=== PATIENT | female | born 1950 | race Caucasian/White ===

== ENCOUNTER 2019-10-08 06:49 | Day surgery (SDC) | payer MEDICARE, BC ==
[~2019-10-08 06:49] MED LIST: Dextrose 5%-0.45% NaCl 1,000 ML IV SCH; Midazolam 1 MG/ML 2 ML SDV ONE; Sodium Chloride 0.9% 10 ML Syringe FLUSH PRN; fentaNYL 100 MCG/2 ML SDV ONE
[2019-10-08] MEDS ORDERED: Midazolam 1 MG/ML 2 ML SDV IV ONE ×7 (06:50→07:45)
[2019-10-08] MEDS ORDERED: fentaNYL 100 MCG/2 ML SDV IV ONE ×3 (06:50→07:30)
[2019-10-08] MEDS ORDERED: Sodium Chloride 0.9% 1,000 ML IV SCH (07:40)
--- NOTE | 2019-10-08 14:38 | OR ---
DATE: 10/08/2019 PROCEDURE PERFORMED: Total colonoscopy. INSTRUMENT USED: PCF-H190DL Olympus video colonoscope. PREMEDICATIONS: Fentanyl 100 mcg intravenous, Versed 4 mg intravenous. Nasal O2 cannula. The procedure was done under pulse oximetry, BP recording, and cardiac monitoring. INDICATION: The patient with recent onset of left lower quadrant abdominal pain. Colonoscopic examination is done for detection of any polypoid lesions and removal, endoscopic hemostasis therapy if needed. DESCRIPTION OF PROCEDURE: Initial rectal exam was unremarkable. Rigid anoscopy was normal. The colonoscope was passed with ease. Scattered diverticula were noted, more so in the distal left colon along with some deformity. The scope was passed with ease into the ileocecal area. Photographs were taken of the normal-appearing cecum, identified by landmarks of appendiceal orifice and double-bulged ileocecal folds. No bleeding was noted from any of the visualized areas at the commencement of the examination. The bowel preparation was found to be adequate. [place] scale 2 in all the regions, total score of 6. No stricture. No vascular ectasia. No large isolated ulceration seen. No evidence of diffuse inflammatory bowel disease in the form of friability, contact bleeding, or ulcerations. No polyp and no tumor mass identified. Probing the proximal sides of folds and flexures using adequate distention and clearing up the stool material, withdrawal of the scope was made. Cecum to rectum time of over 6 minutes. No bleeding was noted from any of the visualized areas at the completion of examination. IMPRESSION: Diverticulosis. The patient tolerated the procedure well. [facility] /[id number]
== END 2019-10-08 09:48 | disposition home or self-care (01) ==
LOC: DL.ENDO 06:49
PROVIDERS: ATTEND Internal Medicine Gastroenterology
DX: K57.30 Diverticulosis of large intestine without perforation or abscess without bleeding (principal)
CPT/HCPCS: 45378; J2250; J3010; J7030; J7042; G0121

== ENCOUNTER 2019-10-24 06:56 | Day surgery (SDC) | payer MEDICARE, BC ==
[~2019-10-24 06:56] MED LIST changes: -Dextrose 5%-0.45% NaCl 1,000 ML IV SCH; -Sodium Chloride 0.9% 10 ML Syringe FLUSH PRN
[2019-10-24] MEDS ORDERED: fentaNYL 100 MCG/2 ML SDV IV ONE ×3 (06:57→08:17)
[2019-10-24] MEDS ORDERED: Midazolam 1 MG/ML 2 ML SDV IV ONE ×3 (06:57→08:18)
[2019-10-24] MEDS ORDERED: Sodium Chloride 0.9% 10 ML Syringe FLUSH PRN (07:46)
[2019-10-24] MEDS ORDERED: Dextrose 5%-0.45% NaCl 1,000 ML IV SCH (08:00)
--- NOTE | 2019-10-24 13:18 | OR ---
DATE: 10/24/2019 PROCEDURE: Esophagogastroduodenoscopy and multiple pinch biopsies. INSTRUMENT USED: [id number]-HQ190 Olympus video panendoscope. PREMEDICATIONS: No oral or topical anesthesia used. Fentanyl 100 mcg intravenous, Versed 1.5 mg intravenous, nasal O2 cannula. The procedure was done under pulse oximetry, BP recording, and chha. INDICATION: The patient with high dysphagia and dyspepsia, unexplained and not responsive to medical measures. Recent barium esophagogram suspicious for distal esophageal ulcer versus diverticulum. Esophagogastroduodenoscopy is performed for detection of any active erosive lesions, [place] esophagus and/or malignancy also under consideration, H pylori status to be determined, esophageal dilatations if indicated, endoscopic hemostasis therapy if needed. PROCEDURE IN DETAIL: The scope was passed with ease. Adequate visualization of the esophagus was made from proximal to distal areas. No upper esophageal lesions identified. No distal esophageal stricture. No uphill or downhill esophageal varices. No Krysta-Davidson tear. No esophageal polyp or tumor mass identified. Sliding hiatal hernia was noted. [place] columnar epithelium was noted at around 37 cm distal to the oral verge, 4-quadrant biopsies were obtained and sent for any evidence of intestinal metaplasia. No proximal gastric varices noted. Gastric fundus examination by retroflexion showed no polypoid lesions. No gastric ulcer, malignant mass, or vascular ectasia identified. Multiple pinch biopsies were taken from the gastric antrum and proximal body and sent for PyloriTek test for H pylori, and if negative in an hour, the tissue is to be sent for histopathology. Duodenal bulb showed no ulcer. Visualized second part of the duodenum is unremarkable. No bleeding was noted from any of the visualized areas at the completion of examination. Photographs were taken of the duodenal bulb, gastric antrum, fundus, and distal esophagus. IMPRESSION: Sliding hiatal hernia. The patient tolerated the procedure well. [facility] /[id number]
== END 2019-10-24 10:28 | disposition home or self-care (01) ==
LOC: DL.ENDO 06:56
PROVIDERS: ATTEND Internal Medicine Gastroenterology
DX: K44.9 Diaphragmatic hernia without obstruction or gangrene (principal); B96.81 Helicobacter pylori [H. pylori] as the cause of diseases classified elsewhere; I10 Essential (primary) hypertension; E78.5 Hyperlipidemia, unspecified; Z87.19 Personal history of other diseases of the digestive system
CPT/HCPCS: 43239; 87077; J2250; J3010; J7042

== ENCOUNTER 2020-03-01 18:37 | Emergency (ER) | payer MEDICARE, BC ==
--- NOTE | 2020-03-01 19:35 | EDM.PDOC ---
ED HPI GENERAL MEDICAL PROBLEM - General Chief Complaint: Respiratory Problem Stated Complaint: COUGH, SHORTNESS BREATH, SOAR THROAT...PER PT Time Seen by Provider: 03/01/20 19:30 Source of Information: Reports: Patient History Limitations: Reports: No Limitations - History of Present Illness INITIAL COMMENTS - FREE TEXT/NARRATIVE: This 69 yo female patient reports to the ED with a sore throat and head congestion for the past 6 days. The patient reports she was recently in [place] around large numbers of people. The patient reports her main concern is that she may have contracted the CoronaVirus while in [place]. The patient reports she is going to see a good friend that has had a recent loss in her family and wants to make sure that she does not spread what she has. Onset Date: 02/25/20 Duration: Constant, Getting Worse Location: Reports: Head, Neck Quality: Reports: Ache, Dull Severity: Moderate Improves with: Reports: None Worsens with: Reports: None Context: Reports: Other Associated Symptoms: Reports: Cough. Denies: Fever/Chills, Headaches, Nausea/Vomiting Throat Pain Score (Numeric/FACES): 4 - Related Data Allergies Allergy/AdvReac Type Severity Reaction Status Date / Time ramipril AdvReac Other Verified 10/24/19 07:10 Home Meds: Home Meds Calcium Carbonate/Vitamin D3 [Caltrate-600 with Vit D Tab] 1 each PO BID 10/07/13 [History] Glucosamine/D3/Boswellia Shaila [Glucosamine Complex Tablet] 2 each PO BID 12/23/14 [History] LORazepam [Ativan] 0.5 mg PO BID PRN 12/24/14 [History] Alendronate Sodium 70 mg PO .Q7DAYS 10/07/19 [History] Aspirin [Ecotrin EC] 81 mg PO DAILY 10/07/19 [History] Irbesartan 75 mg PO DAILY 10/07/19 [History] Latanoprost 1 drop EYEBOTH DAILY 10/07/19 [History] amLODIPine Besylate [Amlodipine Besylate] 5 mg PO DAILY 10/07/19 [History] Past Medical History - Past Health History Medical/Surgical History: Denies Medical/Surgical History HEENT History: Reports: Impaired Vision Other HEENT History: wears contacts Cardiovascular History: Reports: Hypertension Respiratory History: Reports: Sleep Apnea Gastrointestinal History: Reports: None, GERD Genitourinary History: Reports: None PUTTER IN History: Reports: , Spontaneous Musculoskeletal History: Reports: Arthritis Neurological History: Reports: Concussion Psychiatric History: Reports: Anxiety Endocrine/Metabolic History: Reports: None Hematologic History: Reports: None Immunologic History: Reports: None Oncologic (Cancer) History: Reports: None Dermatologic History: Reports: None - Infectious Disease History Infectious Disease History: Reports: None - Past Surgical History HEENT Surgical History: Reports: Tonsillectomy Cardiovascular Surgical History: Reports: None Respiratory Surgical History: Reports: None GI Surgical History: Reports: Appendectomy, Colonoscopy Female Surgical History: Reports: Hysterectomy, Salpingo-Oophorectomy Musculoskeletal Surgical History: Reports: Other (See Below) Other Musculoskeletal Surgeries/Procedures:: Left foot surgery 08/11/16 Social & Family History - Family History Family Medical History: Noncontributory - Tobacco Use Smoking Status *Q: Unknown Ever Smoked - Caffeine Use Caffeine Use: Reports: Coffee Caffeine Use Comment: 3 cups daily - Recreational Drug Use Recreational Drug Use: No ED ROS GENERAL - Review of Systems Review Of Systems: Comprehensive ROS is negative, except as noted in HPI. ED EXAM, GENERAL - Physical Exam Exam: See Below Exam Limited By: No Limitations General Appearance: Alert, WD/WN, Anxious, Mild Distress Eye Exam: Bilateral Eye: EOMI, Normal Inspection, PERRL Ears: Normal External Exam, Normal Canal, Hearing Grossly Normal, Normal TMs Nose: Normal Inspection, Normal Mucosa, No Blood Throat/Mouth: Normal Inspection, Normal Lips, Normal Teeth, Normal Gums, Normal Oropharynx, Normal Voice, No Airway Compromise Head: Atraumatic, Normocephalic Neck: Normal Inspection, Supple, Non-Tender, Full Range of Motion Respiratory/Chest: No Respiratory Distress, Lungs Clear, Normal Breath Sounds, No Accessory Muscle Use, Chest Non-Tender Cardiovascular: Normal Peripheral Pulses, Regular Rate, Rhythm, No Edema, No Gallop, No JVD, No Murmur, No Rub GI/Abdominal: Normal Bowel Sounds, Soft, Non-Tender, No Organomegaly, No Distention, No Abnormal Bruit, No Mass (Female) Exam: Deferred Rectal (Female) Exam: Deferred Back Exam: Normal Inspection, Full Range of Motion, NT Extremities: Normal Inspection, Normal Range of Motion, Non-Tender, Normal Ca pillary Refill, No Pedal Edema Neurological: Alert, Oriented, CN II-XII Intact, Normal Cognition, Normal Gait, Normal Reflexes, No Motor/Sensory Deficits Psychiatric: Normal Affect, Normal Mood Skin Exam: Warm, Dry, Intact, Normal Color, No Rash Lymphatic: No Adenopathy Course - Vital Signs Last Recorded V/S: Last Vital Signs Temp 36.6 C 03/01/20 18:48 Pulse 84 03/01/20 18:48 Resp 18 03/01/20 18:48 BP 172/93 H 03/01/20 18:48 Pulse Ox 99 03/01/20 18:48 - Orders/Labs/Meds Orders: Active Orders 24 hr Category Date Time Status CULTURE STREP A CONFIRMATION [] Stat Lab 03/01/20 18:00 Results STREP SCRN A RAPID W CULT CONF [] Stat Lab 03/01/20 18:00 Results Labs: Laboratory Tests 03/01/20 Range/Units 19:35 SARS-CoV-2 RNA (RT-PCR) Negative (NEGATIVE) Departure - Departure Time of Disposition: 20:21 Disposition: Home, Self-Care 01 Condition: Fair Clinical Impression: URI (upper respiratory infection) Qualifiers: URI type: unspecified URI Qualified Code(s): J06.9 - Acute upper respiratory infection, unspecified - Discharge Information *PRESCRIPTION DRUG MONITORING PROGRAM REVIEWED*: Not Applicable *COPY OF PRESCRIPTION DRUG MONITORING REPORT IN PATIENT JEFFRY: Not Applicable Instructions: Upper Respiratory Infection, Adult, [id number] Forms: ED Department Discharge Care Plan Goals: The patient was advised of the examination and lab results during the visit. The patient was encouraged to continue to wear a mask as appropriate. If the patient has any additional symptoms or concerns, the patient should either return to the emergency department or visit her primary care facility. Sepsis Event Note (ED) - Evaluation Sepsis Screening Result: No Definite Risk - Focused Exam Vital Signs: Vital Signs Temp Pulse Resp BP Pulse Ox 03/01/20 18:48 36.6 C 84 18 172/93 H 99
== END 2020-03-01 20:28 | disposition home or self-care (01) ==
LOC: DL.ED 18:37
DX: J06.9 Acute upper respiratory infection, unspecified (principal); F41.9 Anxiety disorder, unspecified; I10 Essential (primary) hypertension; K21.9 Gastro-esophageal reflux disease without esophagitis; M19.90 Unspecified osteoarthritis, unspecified site; Z88.8 Allergy status to other drugs, medicaments and biological substances; Z79.82 Long term (current) use of aspirin; Z79.899 Other long term (current) drug therapy
CPT/HCPCS: 87081; 87430; 99283; U0002